=== PATIENT | female | born 1970 | race Caucasian/White ===

== ENCOUNTER 2019-10-06 02:08 | Outpatient (CLI) | payer OTHER, SELFPAY ==
--- NOTE | 2019-10-06 13:21 | DI.MAMMO_ITS ---
EXAM: MG MAMMO SCREENING CLINICAL HISTORY: SCREENING, Z12.39. TECHNIQUE: Bilateral full field digital CC and MLO mammographic images were obtained with 3D tomosyn thesis and utilizing computer aided detection (CAD). COMPARISON: Available for comparison. FINDINGS: Masses/Architectural Distortion: None seen. Microcalcifications: No suspicious pleomorphic-type are seen. Skin Thickening/Nipple Retraction: None. IMPRESSION: 1. No significant interval change with no specific features of malignancy noted. 2. Unless there is more urgent need, screening mammography is recommended, as per [employer] guidelines. ACR BI-RAD Category- 1 Negative Breast Density - Category C - Heterogeneously dense The mammogram demonstrates the patient's breast tissue is dense. Dense breast tissue is very common a nd is not abnormal but dense breast tissue can make it harder to find cancer on a mammogram. Also, de nse breast tissue may increase their breast cancer risk. This information about the result of the [facility] mogram report was provided to the patient to raise their awareness. Use this report when you speak wi th the patient about their risks for breast cancer, which includes their family history. At that time , you may recommend for more screening tests (Ultrasound or MRI) as they might be useful based on the ir risk. A negative radiographic report should not delay biopsy if a dominant or clinically suspicious mass is present. Up to ten percent of cancers are not identified on mammography. A negative report may reinforce clinical impression. Adenosis and dense breasts may obscure an underlying neoplasm. False positive reports average 6 to 10%. Patient will receive a letter notifying them of these results.
== END 2019-10-06 02:28 ==
PROVIDERS: PCP Family Medicine; Visit Provider Family Medicine
DX: Z12.31 Encounter for screening mammogram for malignant neoplasm of breast (principal)
CPT/HCPCS: 77063; 77067

== ENCOUNTER 2020-06-09 09:50 | Day surgery (SDC) | payer OTHER, SELFPAY ==
[2020-06-09 10:13] VITALS: BP 121/76; PULSE 57; RESP 16; TEMP 36.6; O2SAT 97
[2020-06-09] MEDS: Lactated Ringers 1,000 ML 80 ML IV (10:33)
--- NOTE | 2020-06-09 11:14 | W.PM.DSUDISC ---
Discharge Plan Disposition Patient Disposition: HOME Condition: Good Discharge Details Reason For Visit: colon scope Attending Provider: Juana Tapia Primary Care Provider: Vanessa Scanlon Home Meds and New Rx's Prescriptions: Continued Flovent HFA 110 mcg/actuation HFA aerosol inhaler 1 puff IH BID RF: 0 montelukast [Singulair] 10 mg tablet 10 mg PO DAILY RF: 0 acyclovir [Zovirax] 5 % cream 1 applic TP ONCE RF: 0 fluconazole [Diflucan] 150 mg tablet 150 mg PO DAILY RF: 0 valacyclovir [Valtrex] 500 MG tablet 500 mg PO PRN PRNRF: 0 albuterol sulfate [Ventolin HFA] 8 GM HFA aerosol inhaler 2 puff Inhalation PRN PRNRF: 0 Ibuprofen [Ibuprofen Ib] 200 MG tablet 600 mg PO PRN PRNRF: 0 Discontinued polyethylene glycol 3350 17 gram/dose powder 238 g PO ONCE Qty: 238 RF: 0 bisacodyl [Dulcolax (bisacodyl)] 5 mg tablet,delayed release (DR/EC) 5 mg PO ONCE Qty: 4 RF: 0 Discharge Instructions Additional Instructions: Findings:normal Follow up:repeat in 10 yrs time Please call if you develop: fevers >101.5 Nausea or Vomiting Abdominal pain that is not transient DAY SURGERY UNIT POST COLONOSCOPY INSTRUCTIONS 1. Because there will be medication in your system for the next 24 hours, you may feel a little sleepy. Your coordination will be affected. Therefore: a. Do not drive or operate dangerous equipment for 24 hours. b. Do not drink alcohol beverages for 24 hours (not even beer). c. Plan to go home and rest for the day. 2. Generally there are no restrictions on your activity after a day or so has gone by, but you may feel a bit fatigued for a few days. 3 After you arrive home you may have a light meal and return to a normal diet as you can tolerate it without feeling sick to your stomach. 4. After surgery, you may feel pain or discomfort. This should be only transient, but if it persists please contact your doctor. 5. If there are any questions regarding the findings of your procedure, please feel free to contact your doctor. 6. If you are unable to contact your doctor with a problem, contact the hospital at [phone]. 7. Continue all your regular medications unless directed otherwise. I understand the above instructions and have no questions. Signature of Patient or Responsible Adult Escort Date/Time Name of Responsible Adult Escort Signature of Nurse Date/Time Activity:: No lifting over 20 pounds or strenuous activity x24 hours. Diet:: Small light meals x24 hours Discharge Orders Discharge Orders: Discharge Order (Routine); Ordered 06/09/20 Ordered By: Juana Tapia DS: Diagnosis Discharge Diagnosis (1) Colon cancer screening: Status: Acute
[2020-06-09 11:38] VITALS: BP 110/67; PULSE 49; RESP 16; TEMP 36.4; O2SAT 100
--- NOTE | 2020-06-10 10:02 | W.COLOREPORT ---
Date of service: 06/09/20 Time of Service: 10:30 Colonoscopy Report Date of procedure: 06/09/20 Pre-op diagnosis general: CRC screen Post-op diagnosis procedure note: same Surgeon: Juana Tapia Anesthesia proc note operative: GETA Estimated blood loss (mL): 0 Pathology: none sent Disposition: same day Prep: Miralax/Dulcolax Retraction Time: 10 Procedure Description: After informed consent was obtained the patient was taken to the procedure room and placed in a left decubitous position. Monitors were applied and a time out was done. The patients name, date of , procedure, allergies to medications and metal in their body was reviewed. The patient was then sedated. Once sedated and comfortable a rectal exam was done. External exam was normal. Internal exam revealed a normal sphincter tone and no palpable masses. The scope was then introduced and retrofelexed. no internal hemorrhoids were identified. The scope was then advanced to the cecum w/out difficulty. The TI and appendiceal orifice were identified. The prep was good. The scope was then slowly retracted over 10 minutes back into the rectum. No polyps/avm's/diverticula. The scope was removed and the patient was woken up and taken back to Same day surgery in stable condition. The patient tolerated the procedure well and there were no immediate complications. Follow up: The patient should follow up in 10 years unless they develop changes in bowel habits or other new gastrointestinal complaints.
== END 2020-06-09 11:57 | disposition home or self-care (01) ==
PROVIDERS: PCP Family Medicine; Visit Provider Surgery
PROC: 0DJD8ZZ Inspection of Lower Intestinal Tract, Via Natural or Artificial Opening Endoscopic (ICD-10-PCS; CPT 45378; principal; 2020-06-09 10:15)
DX: Z12.11 Encounter for screening for malignant neoplasm of colon (principal)
CPT/HCPCS: 45378; J2001

== ENCOUNTER 2022-02-22 04:19 | Outpatient (CLI) | payer OTHER, SELFPAY ==
[2022-02-22 13:54] LABS: TSH (W/Ref FT4) 1.86 uIU/mL (0.36-3.74)
== END 2022-02-22 04:20 | disposition home or self-care (01) ==
LOC: LBO 04:20
PROVIDERS: PCP Family Medicine; Visit Provider Family Medicine
DX: R07.0 Pain in throat (principal)
CPT/HCPCS: 36415; 84443

== ENCOUNTER 2022-12-11 01:42 | Outpatient (CLI) | payer OTHER, SELFPAY ==
--- NOTE | 2022-12-11 | DI.MAMMO_ITS ---
Exam(s) MAMMO SCREENING EXAM: MAMMO SCREENING CLINICAL HISTORY: SCREENING, Z12.31 TECHNIQUE: Bilateral full field digital CC and MLO mammographic images were obtained with 3D tomosyn thesis and utilizing computer aided detection (CAD). COMPARISON: Available for comparison. FINDINGS: Masses/Architectural Distortion: There is a 1.1 cm ovoid lobulated density in the inferior left breas t on the MLO view. Microcalcifications: No suspicious pleomorphic-type are seen. Skin Thickening/Nipple Retraction: None. IMPRESSION: 1. Ovoid density in the inferior left breast on the MLO view. 2. Further evaluation with a spot compression views recommended. Limited left breast ultrasound may be indicated at that time. BI-RADS Category 0 - Assessment Incomplete: Need additional imaging evaluation Breast Density - Category C - Heterogeneously dense Breast density category C or D implies that the patient has dense breast tissue. Dense breast tissue is very common and is not abnormal but dense breast tissue can make it harder to find cancer on a ma mmogram. Also, dense breast tissue may increase their breast cancer risk. This information about the result of the mammogram report was provided to the patient to raise their awareness. Use this report when you speak with the patient about their risks for breast cancer, which includes their family hist ory. At that time, you may recommend for more screening tests (Ultrasound or MRI) as they might be us eful based on their risk. A negative radiographic report should not delay biopsy if a dominant or clinically suspicious mass is present. Up to ten percent of cancers are not identified on mammography. A negative report may reinforce clinical impression. Adenosis and dense breasts may obscure an underlying neoplasm. False positive reports average 6 to 10%. Patient will receive a letter notifying them of these results.
== END 2022-12-11 02:02 ==
LOC: DI 01:43
PROVIDERS: PCP Family Medicine; Visit Provider Family Medicine
DX: Z12.31 Encounter for screening mammogram for malignant neoplasm of breast (principal)
CPT/HCPCS: 77063; 77067

== ENCOUNTER 2022-12-18 04:19 | Outpatient (CLI) | payer OTHER, SELFPAY ==
--- NOTE | 2022-12-18 14:30 | DI.US_ITS ---
Exam(s) MG MAMMO SCREEN CALL BACK UNI US BREAST LT LIMITED EXAM: MAMMO SCREEN CALL BACK UNI -LEFT AND COMPLETE LEFT BREAST ULTRASOUND CLINICAL HISTORY: 1.1 CM OVOID DENSITY IN INFERIOR LT BREAST ON MLO VIEW. TECHNIQUE: Unilateral LEFT BREAST spot mammographic images obtained with 3D tomosynthesisand [employer] computer aided detection (CAD). . Complete LEFT breast Ultrasound was also performed, including all 4 quadrants, the retroareolar regio n, and the ipsilateral axilla. COMPARISON: Prior mammograms were reviewed. This additional imaging was performed due to findings described on the recent screening mammogram of 12/11/2022. FINDINGS: DIAGNOSTIC MAMMOGRAM: Additional mammographic views performed todayrender this area less concerning. COMPLETE LEFT BREAST ULTRASOUND: Ultrasound performed today reveals no evidence of solid or significant cystic all 4 quadrants of the left breast.. Scanning of the ipsilateral axilla reveals no significant adenopathy. IMPRESSION: 1. No radiographic evidence of malignancy in the left breast. 2. Negative complete left breast ultrasound Appropriate follow-up as discussed by myself with the patient today is to keep her on a yearly mammog july schedule, with earlier imaging if a self detected breast change is noted. The patient was informed of these findings and recommendations prior to leaving the department today. BI-RADS Category 2 - Benign Findings Breast Density - Category B - Scattered areas of fibroglandular density Breast density Category C or D implies that the patient has dense breast tissue. Dense breast tissue can make it harder to find cancer on a mammogram. Dense breast tissue is also associated with an incr eased risk of breast cancer. This information about the result of the mammogram report was provided to the patient to raise their awareness. Use this report when you speak with the patient about their risks for breast cancer, which includes their family history. At that time, you may recommend additional screening tests (Ultrasoun d or MRI) as these tests may add significant information. A negative radiographic report should not delay biopsy if a dominant or clinically suspicious mass is present. Up to ten percent of cancers are not identified on mammography. A negative report may reinforce clinical impression. Adenosis and dense breasts may obscure an underlying neoplasm. False positive reports average 6 to 10%. Patient will receive a letter notifying them of these results.
== END 2022-12-18 04:39 ==
LOC: DI 04:19
PROVIDERS: PCP Family Medicine; Visit Provider Family Medicine
DX: R92.8 Other abnormal and inconclusive findings on diagnostic imaging of breast (principal)
CPT/HCPCS: 76642; 77063; 77067

== ENCOUNTER 2023-09-10 20:34 | Emergency (ER) | payer OTHER, SELFPAY ==
[2023-09-10 20:43] VITALS: BP 132/89; PULSE 76; RESP 16; TEMP 36.5; O2SAT 98
--- OUTSIDE RECORDS SUMMARY | 2023-09-10 20:43 | XMS_ITS | Patient Health Record ---
Author Name Unknown Organization [facility] Address [address] [place] [id number] Care Team Providers Care Prototype Carpenter Name Role Phone Vanessa Scanlon Primary Care Provider [phone] ALLERGIES Allergen (clinical drug ingredient) Drug/Non Drug Allergy documented on EMR Reaction Allergy Type Onset Date Status Aspartame burning throat Drug Allergy Ac tive aspirin Aspirin due to asthma Drug Allergy Act ally sulfamethoxazole / trimethoprim Bactrim nausea Drug Allergy Active meperidine Demerol YEE, vomiting Drug Allergy Act ally midazolam Midazolam HCl YEE, vomiting Drug Allergy Active Nonoxynol-9 Unknown Drug Allergy Activ e carbamazepine TEGretol Nausea and Vomiting, brain fog Drug Allergy Active Environmental (uncoded) Unknown Allergy Active cefaclor Ceclor (uncoded) Unknown Allergy Act ally RESULTS Component Value Reference Range Notes MAMMOGRAM Reviewed date:01/03/2023 01:56:56 PM Interpretation:BIRADS 2 Performing Lab: Notes/Report: BIRADS 2 Results: BIRADS 2 MRI and MRA Head Reviewed date:03/08/2023 04:16:58 PM Interpretation: Performing Lab: Notes/Report: MAMMOGRAM Reviewed date:12/13/2022 03:44:20 PM Interpretation: Performing Lab: Notes/Report: Results: THINPREP PAP AND HPV mRNA E6 E7 with imaging Reviewed date:12/06/2022 08:56:42 AM Interpretation: Performing Lab:NL1, [facility], [address] [place] [address], [id number] Delmer Santoyo M.D. Notes/Report: Received Date: [id number] FASTING: UNKNOWN CLINICAL INFORMATION: None g iven LMP: NONE GIVEN PREV. PAP: NONE GIVEN PREV. BX: NONE GIVEN SOURCE: Cervix STATEMENT OF ADEQUACY: Satisfactory for evaluation. Endocervical/transformation zone component present. INTERPRETATION/RESULT: Negat ally for intraepithelial lesion or malignancy. COMMENT: This Pap test has been evaluated with computer assisted technology. CHICKEN TENDER: TONYA SANDOVAL(ASCP) CT screening location: [place] [address] COMMENT EXPLANATORY NOTE: The Pap is a screening test for cervical cancer. It is not a diagnostic test and is subject to false negative and false positive results. It is most reliable when a satisfactory sample, regularly obtained, is submitted with relevant clinical findings and history, and when the Pap result is evaluated along with historic and current clinical information. HPV mRNA E6/E7 Not Detected Not Detected Methodology: Film Examiner-Mediated Amplification This assay detects E6/E7 viral messenger RNA (mRNA) from 14 high-risk HPV types (16,18,31,33,35,39,45,51,52,5 6,58,59,66,68). Cervical sources are required for HPV testing. If a vaginal source from a patient who has had a total hysterectomy with removal of cervix was submitted, please contact the testing laboratory for alternative testing options. For additional information, please refer to http://education.Shelfbucks.Estoreify/faq/ZYD398x3 (This link if provided for information/ educational purposes only.) REASON FOR REFERRAL Reason NO APPT 02/12/23 LP. FAXED TO 02.07.2023 [place] eval and treat Please contact our office within 7 days to notify [facility] of scheduled appointment Diagnosis 1 Bunion, left foot (M 21.612) Referral Organization [facility] Referring Provider First Name Vanessa Referring Provider Last Name Ghislaine Referring Provider Speciality Family [facility] Referred Organization [facility] Referred Provider SONU KEY Referred Address [address], [id number], Referred Provider Specialty Podiatry General Notes Jaclyn Stokes 02/07 10:47:10 AM >FAXED TO [facility].Haroon Lindsey 02/12/2023 03:41:21 PM >PER [place], NO APPT YET. Referral Priority Routine Reason FAXED TO [facility] 09.04.19 24 [place] Please evaluate and treat Please contact our office within 7 days to notify [facility] of scheduled appointment Diagnosis 1 Trigeminal neuralgia (G50.0) Referral Organization [facility] Mikey Quiñonez Referring Provider First Name [place] Referring Provider Last Name Ghislaine [facility] joan Referred Provider Anali Duran Referred Provider Specialty Neurology General Notes Jaclyn Stokes 09/04 09:49:47 AM >Faxed to [facility]. Referral Priority Routine Reason FAXED TO [facility] NEURO 0 09/03/23 LP. eval and treat Please contact our office within 7 days to notify [facility] of scheduled appointment Diagnosis 1 Trigeminal neuralgia (G50.0) Referral Organization [facility] Mcintosh Referring Provider First Name [place] Referring Provider Last Name Ghislaine Referring Provider [facility] joan Referred Provider Anali Duran Referred Provider Specialty Neurology General Notes Diana Salcido RN 09/03/2023 11:29:43 AM >Please include Ov note from 08/31/2023., Svitlana Patiño 09/03/2023 01:39:02 PM >FAXED TO [facility] NEURO Referral Priority Routine MEDICATIONS Medication SIG (Take, Route, Frequency, Duration) Notes Start Date End Date Status Vitamin B Complex - as directed Orally Active Singulair 10 MG 1 tablet in the evening Orally Once a day as needed for 30 days taking daily Active lamoTRIgine 25 MG 1 tablet twice daily for 3 day, then increase to 2 tablets twice a day Orally as directed for 14 days 03/08/2023 Active Ventolin HFA 108 (90 Base) MCG/ACT 2 puffs Orally every 4-6 hours as needed for 30 days 06/06/2015 Active Zovirax 5 % 1 application to affected area Externally Five times a day for 30 days 03/16/2019 Active Flovent HFA 110 MCG/ACT 2 puffs Inhalati on Twice a day as needed for 30 days Active valACYclovir HCl 500 MG 1 tablet Orally twice a day with outbreak for 30 days 03/15/2015 Active IMMUNIZATIONS Vaccine Route Administration Date Status Comme nts COVID-19 Moderna 22739 Unknown 11/23/2020 Administered COVID-19 Moderna 28834 Unknown 12/21/2020 Administered COVID-19 Moderna 27444 IM Intramuscular 07/04/2021 Adminis tered COVID-19 Pfizer NATALIE Age 19 to 64 STATE Supplied IM Intramuscular 06/17/2023 Administered INFLUENZA 18 YRS TO 64 YRS OLD-STATE SUPPLIED Unknown 06/22/2010 Administered INFLUENZA 18 YRS TO 64 YRS OLD-STATE SUPPLIED IM Intramuscular 06/17/2012 Administered INFLUENZA 18 YRS TO 64 YRS OLD-STATE SUPPLIED Unknown 04/24/2014 Administered INFLUENZA 18 YRS TO 64 YRS OLD-STATE SUPPLIED Unknown 05/13/2015 Administered INFLUENZA 18 YRS TO 64 YRS OLD-STATE SUPPLIED Unknown 05/04/2016 Administered INFLUENZA 18 YRS TO 64 YRS OLD-STATE SUPPLIED IM Intramuscular 06/11/2018 Administered INFLUENZA 18 YRS TO 64 YRS OLD-STATE SUPPLIED IM Intramuscular 07/27/2019 Administered INFLUENZA 18 YRS TO 64 YRS OLD-STATE SUPPLIED IM Intramuscular 05/18/2020 Administered INFLUENZA 18 YRS TO 64 YRS OLD-STATE SUPPLIED IM Intramuscular 05/24/2021 Administered INFLUENZA 18 YRS TO 64 YRS OLD-STATE SUPPLIED IM Intramuscular 05/31/2022 Administered INFLUENZA 18 YRS TO 64 YRS OLD-STATE SUPPLIED IM Intramuscular 06/17/2023 Administered Influenza 3 Yrs and up State Supply 65303 Unknown 07/02/2011 Administered Influenza 3 Yrs and [facility] Supply 10255 IM Intramuscular 07/06/2013 Administered TDaP Adult [facility] 84772 IM Intramuscular 09/05/2012 Administ ered TDaP Adult [facility] 91584 IM Intramuscular 11/22/2022 Administ ered SOCIAL HISTORY Tobacco Use: Social History Observation Description Date Details (start date - stop date) Never Smoker NA - NA Sex Assigned At : Social History Observation Description Sex Assigned At Female OTHER TOBACCO USE: Question Answer Notes Are you an other tobacco user? No SMOKING STATUS: Question Answer Notes Are you a: Nonsmoker PRAPARE Question Answer Notes Date Completed/Updated: 10/17/2020 What is your current housing situation? I have h ousing Are you worried about losing your housing? No What is the highest level of school that you have finished? 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 Check all that apply I do not have problems meeting my needs Has lack of transportation k ept you from medical appointments, meetings, work or from getting things needed for daily living? No How often do you see or talk to people that you care about and feel close to? (For example: talking to friends on the phone, visiting friends or family, going to episcopalian or club meetings) 3 to 5 times a week How stressed are you? Stress is when someone feels tense, nervous, anxious, or can't sleep at night because their mind is troubled A little bit In the past year have you sp ent more than 2 nights in a row in a intermediate, fdc, halfway center, or juvenile correctional facility? No Are you a refugee? No What country are you from? [place] Do you feel physically and e motionally safe where you currently live? No In the past year, have you b een afraid of your partner or ex-partner? 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) Active confirmed 043711470 Problem Neutropenia, unspecified type (D70.9) Active confirmed 631826146 Problem Adjustment disorder, unspecified type (F43.20) Active confirmed 39345045 Problem Piriformis syndrome, unspecified laterality (G57.00) Active confirmed 010105813 Problem Hypercholesteremia (E78.00) Active confirmed 95271972 Problem Right-sided low back pain with right-sided sciatica, unspecified chronicity (M54.41) Active confirmed 231613910 Problem Bunion, left foot (M21.612) Active confirmed 049874325 VITAL SIGNS Heart Rate 66 BPM 08/31/2023 Temperature 98.1 degrees Fahrenheit 08/31/2023 Respiratory Rate 16 /min 03/08/2023 Oximetry 97 % 08/31/2023 Blood pressure diastolic 62 mmHg 08/31/2023 Height 65 in 08/31/2023 Blood pressure systolic 98 mmHg 08/31/2023 Weight 147.6 lbs 11/22/2022 BMI 24.56 kg/m2 11/22/2022 Encounters Encounter Location Date Provider Diagnosis [address] [id number] 10/08/2022 Vanessa Scanlon RAD (reactive airway disease) J45.[address] [id number] 11/22/2022 [place] Ghislaine PRAPARE NEGATIVE PRA N [address], [place] [id number] 01/03/2023 [place] Ghislaine [facility] [address] [facility], [place] [address] 02/05/2023 [place] Ghislaine Bunion, left foot M21.[address], [place] [id number] 02/28/2023 [place] Ghislaine [address], [place] [id number] 03/05/2023 [place] Ghislaine [facility] [address] [facility], [place] [address] 08/29/2023 [place] Ghislaine Trigeminal neural xochilt G50.[address], [place] [id number] 08/30/2023 [place] Ghislaine [address], [place] [id number] 09/06/2023 [place] Ghislaine Trigeminal neuralgia G50.[address], [place] [id number] 11/22/2022 [place] Ghislaine Annual physical exam Z00.00 ; Dietary counseling Z71.3 ; Screening mammogram for breast cancer Z12.31 ; RAD (reactive airway disease) J45.909 and Pap smear for cervical cancer screening Z12.[address], [place] [id number] 06/17/2023 [place] Scanlon Encounter for immunization Z23 [address] [id number] 08/31/2023 [place] Ghislaine Trigeminal neural xochilt G50.0 and RAD (reactive airway disease) J45.[address], [place] [id number] 03/08/2023 [place] Ghislaine Trigeminal neuralgia G50.[address] [id number] 02/25/2023 [place] Ghislaine Trigeminal neuralgia G50.0 ASSESSMENTS Encounter Date Diagnosis Assessment Notes Treatment Notes Treatment Clinical Notes 10/08/2022 RAD (reactive airway disease) (ICD-10 - J45.909) 11/22/2022 PRAPARE NEGATIVE (ICD9-CM - PRAN) 11/22/2022 Annual physical exam (ICD-10 - Z00.00) 02/25/2023 Trigeminal neuralgia (ICD-10 - G50.0) Trigeminal Neuralgia: Care Instructions material was printed 03/08/2023 Trigeminal neuralgia (ICD-10 - G50.0) 06/17/2023 Encounter for immunization (ICD-10 - Z23) Patient presents for flu shot. Screening questions reviewed with patient. There was no contraindication to patient receiving the flu shot today. Consent received prior to injection. Vaccine Information Sheet offered to patient. 08/29/2023 Trigeminal neuralgia (ICD-10 - G50.0) 08/31/2023 Trigeminal neuralgia (ICD-10 - G50.0) 02/05/2023 Bunion, left foot (ICD-10 - M21.612) 09/06/2023 Trigeminal neuralgia (ICD-10 - G50.0) 08/31/2023 RAD (reactive airway disease) (ICD-10 - J45.909) 11/22/2022 Dietary counseling (ICD-10 - Z71.3) 11/22/2022 Screening mammogram for breast cancer (ICD-10 - Z12.31) 11/22/2022 RAD (reactive airway disease) (ICD-10 - J45.909) 11/22/2022 Pap smear for cervical cancer screening (ICD-10 - Z12.4) 11/22/[address] Scanlon by Mayi Pike medical office clerk, on 11/22/2022. I, Dr. Scanlon, have personally reviewed and agreed with the information entered by the medical office clerk. 02/25/[address] Scanlon by Mayi Pike medical office clerk, on 02/25/2023. I, Dr. Scanlon, have personally reviewed and agreed with the information entered by the medical office clerk. 03/08/[address] Scanlon by Mayi Pike medical office clerk, on 03/08/2023. IDr. Scanlon, have personally reviewed and agreed with the information entered by the medical office clerk. PLAN OF TREATMENT No Information Insurance Providers Payer Name Payer Address Payer Phone Subscriber Number Group Number Insured Name Patient Relationship to Insured Coverage Start Date Coverage End Date [facility] [address] [place], [place] [phone] [id number] Trina Gutierrez Self - patient is the insured MEDICAL (GENERAL) HISTORY Medical History History ICD Code RAD HSV hx: abnormal paps (ASCUS, LS IL, HPV). 11/02/2013: normal colpo. 01/31 nl Pap, HPV neg. isolated, elevated RF 2010 on hypercholesterolemia, no need for treatm ent MRI of pelvis 08/2021 shows extensive findings with bilateral labral tears, bilateral iliopsoas bursitis, left hip OA, insertional gluteal tendonopathy bilaterally, partial tear of left hamstring, high grade partial tear of right hamstring Trigeminal neuralgia. 2 disc reet episodes 02/2023 and 08/2023. normal MRI. adverse response to tegretol Surgical History Surgery Date(Month/Year) C section 1998 c section 2000 c section 2007 Hospitalization History Reason Date(Month/Year)
--- NOTE | 2023-09-10 21:06 | ED.GENADUL_ITS ---
HPI General Mode of arrival: ambulatory . Date/Time Provider Initiated Documentation: 09/10/23 20:36 . Limitations to Documentation: no limitations . Information obtained by: patient . HPI Narrative: 53-year-old female with history of trigeminal neuralgia, here with new onset of painful lump posterior right occiput. Patient noticed lump earlier today on palpation. Lump is tender. She notes some localized discomfort around the area. She also states her trigeminal pain has been persistent with pain in her right lower jaw and some paresthesia in her right lower lip. She had a stabbing sensation in her ear earlier. No pain now in the ear. No headache. No fever. Related Data Home Medications Medication Instructions Recorded Confirmed albuterol sulfate 90 mcg/actuation 2 puff inhalation PRN PRN 06/22/13 09/10/23 aerosol inhaler (Ventolin HFA) valacyclovir 500 mg tablet 500 mg PO PRN PRN 06/22/13 09/10/23 (Valtrex) Ibuprofen [Ibuprofen Ib] 600 mg PO PRN PRN 09/06/17 09/10/23 acyclovir 5 % topical cream 1 applic topical ONCE 09/17/19 09/10/23 (Zovirax) fluticasone propionate 110 1 puff inhalation BID 09/17/19 09/10/23 mcg/actuation HFA aerosol inhaler (Flovent HFA) montelukast 10 mg tablet 10 mg PO DAILY 09/17/19 09/10/23 (Singulair) lamotrigine 25 mg tablet 25 mg PO BID 09/10/23 09/10/23 Allergies Allergy/AdvReac Type Severity Reaction Status Date / Time cefaclor [From Ceclor] Allergy Verified 09/10/23 20:39 nonoxynol 9 Allergy Verified 09/10/23 20:39 shellfish derived Allergy tested Verified 09/10/23 20:39 postive on allergy testing aspirin AdvReac Intermediate Contraindicated Unverified 09/10/23 20:39 due to asthma adhesive AdvReac Mild local Unverified 09/10/23 20:39 irritation latex AdvReac Unverified 09/10/23 20:39 meperidine [From Demerol] AdvReac YEE, Verified 09/10/23 20:39 vomiting midazolam AdvReac YEE, Verified 09/10/23 20:39 vomiting sulfamethoxazole AdvReac nausea Verified 09/10/23 20:39 [From Bactrim] trimethoprim [From Bactrim] AdvReac nausea Verified 09/10/23 20:39 aspertame AdvReac Intermediate Burning Uncoded 09/10/23 20:39 throat General Stated Complaint: Nk/Back Pain KYREE: 3 Review of Systems ENT Ears, Nose, Mouth, and Throat: Reports as per HPI Exam Const General: cooperative and no acute distress HENMT Head: normocephalic and atraumatic Ears: TM normal on the right, EAC's normal (rt) and no periauricular adenopathy General nose exam: external nose normal Mouth: moist mucous membranes Teeth and gingiva: dentition normal Other: Right occipital area: Single less than 1 cm palpable nonmobile subcutaneous nodule that is tender to palpation with no overlying inflammatory changes. No skin lesions in the area. Eyes Conjunctivae: normal conjunctivae Sclera: normal sclerae Pupils: PERRL EOM: EOM intact bilaterally Neck Neck: trachea midline Lymphatic: no lymphadenopathy noted Skin General skin exam: no rashes or lesions noted Neuro General: patient alert and patient awake Cognition: normal cognition Other: No facial weakness Course Vital Signs Vital signs: Vital Signs Temperature 36.5 C 09/10/23 20:43 Pulse 76 09/10/23 20:43 Respiratory Rate 16 09/10/23 20:43 Blood Pressure 132/89 09/10/23 20:43 Pulse Oximetry 98 09/10/23 20:43 Temperature 36.5 C 09/10/23 20:43 Temperature Source Temporal Artery Scan 09/10/23 20:43 Pulse 76 09/10/23 20:43 Respiratory Rate 16 09/10/23 20:43 Respiratory Effort Normal, Non-Labored 09/10/23 20:47 Blood Pressure 132/89 09/10/23 20:43 Blood Pressure Position Sitting 09/10/23 20:43 Pulse Oximetry 98 09/10/23 20:43 Oxygen Delivery Method Room Air 09/10/23 20:43 Oxygen Flow Rate 0 09/10/23 20:43 Pain Level 3 09/10/23 20:43 Medical Decision Making 53-year-old female here with painful palpable subcutaneous nodule right occiput. Exam consistent with tender lymph node. No signs of regional infection. Patient also with trigeminal neuralgia that is been plaguing her over the past few weeks. Patient has been seen by neurology in the past for this and had MRI a few months ago that was nondiagnostic. Plan to initiate treatment with anti-inflammatories ibuprofen and acetaminophen. Plan for outpatient follow-up with her neurologist. Usual and customary discharge instructions were reviewed. Patient was instructed return immediately for any worsening or new concerning symptoms. Patient verbalized understanding of discharge instructions. Quality:SDOH Health Related Social Needs: No Data to Display PFSH All Active Problems Trigeminal neuralgia of right side of face (Acute) Lymphadenopathy (Acute) Colon cancer screening (Acute) Medical History GERD (gastroesophageal reflux disease) Asthma Surgical History Hx of tubal ligation History of esophagogastroduodenoscopy (EGD) History of section Social History Smoking/Tobacco Use Status: Never Smoking risk assessment performed?: Yes Alcohol Intake: current Alcohol Intake frequency: a few times a week Alcohol type: wine Drug use: Never Substance use type: does not use Housing: house Do you feel safe at home: Yes Do you feel safe in your relationship?: Yes Discharge Plan Disposition Patient Disposition: Home Condition: Stable Discharge Details Clinical Impression: Lymphadenopathy, Trigeminal neuralgia of right side of face Primary Care Provider: Vanessa Scanlon ED Provider: Rashaun Omalley Home Meds and New Rx's Prescriptions: Continued fluticasone propionate [Flovent HFA] 110 mcg/actuation HFA aerosol inhaler 1 puff IH BID montelukast [Singulair] 10 mg tablet 10 mg PO DAILY acyclovir [Zovirax] 5 % cream 1 applic TP ONCE valacyclovir [Valtrex] 500 MG tablet 500 mg PO PRN PRN albuterol sulfate [Ventolin HFA] 8 GM HFA aerosol inhaler 2 puff Inhalation PRN PRN Ibuprofen [Ibuprofen Ib] 200 MG tablet 600 mg PO PRN PRN lamotrigine 25 mg tablet 25 mg PO BID Patient Comments: TAKE ONE TABLET BY MOUTH TWICE A DAY FOR 3 DAYS; THEN INCRASE TO 2 TWO TIMES A DAY Discharge Instructions Instructions: Trigeminal Neuralgia (ED), Lymphadenopathy (ED) Additional Instructions: Please take acetaminophen (tylenol) - 650mg every 6 hours by mouth as needed for pain. Please take ibuprofen over the counter. Take 600mg by mouth every 6 hours as needed for pain. Please follow-up with neurology regarding her trigeminal neuralgia. Please contact your primary care physician to arrange follow-up. Return to the ER immediately for any worsening or new concerning symptoms. Referrals: Vanessa Scanlon [Primary Care Provider] -
[2023-09-10] MEDS: Acetaminophen 325 MG TAB 650 MG PO (21:19)
== END 2023-09-10 21:21 | disposition home or self-care (01) ==
PROVIDERS: Emergency Provider Student in an Organized Health Care Education/Training Program; PCP Family Medicine
DX: R59.1 Generalized enlarged lymph nodes (principal); G50.0 Trigeminal neuralgia
CPT/HCPCS: 99283

== ENCOUNTER 2023-11-09 05:29 | Emergency (ER) | payer OTHER, SELFPAY ==
[2023-11-09] VITALS (70 sets, daily range): BP systolic 90–140; BP diastolic 54–85; PULSE 44–68; RESP 8–30; TEMP 36.4–36.8; O2SAT 96–97
--- NOTE | 2023-11-09 05:30 | DI.RAD_ITS ---
Exam(s) XR PORTABLE CHEST AP EXAM: XR PORTABLE CHEST AP CLINICAL HISTORY: left chest pain TECHNIQUE: 2D digital imaging was performed. COMPARISON: No exams were available for comparison FINDINGS: LUNGS: Clear. No pleural abnormality seen. HEART: Normal size. AORTA: Normal diameter. BONES: Unremarkable for age. Soft tissues: Unremarkable. IMPRESSION: No acute findings. DATA REPOSITORY: RADIATION DOSE DELIVERED:
--- NOTE | 2023-11-09 05:30 | RT.EKG_ITS ---
APPROVED REPORT Exam: Resting ECG Reason for Exam: chest pain Patient Location: E HR:58 bpm ECG Measurements Heart Rate 58 AXIS [place] 181 P -12 QRSd 89 QRS 19 QT 408 T 23 QTc 401 Conclusion Sinus bradycardia...rate< 60 Physician: no stemi
--- NOTE | 2023-11-09 05:44 | ED.GENADUL_ITS ---
Discharge Plan Discharge Details Chief Complaint: Chest Pain Clinical Impression: Chest discomfort, Neutropenia Primary Care Provider: Vanessa Scanlon ED Provider: Erich Woodard Home Meds and New Rx's Prescriptions: No Action fluticasone propionate [Flovent HFA] 110 mcg/actuation HFA aerosol inhaler 1 puff IH BID montelukast [Singulair] 10 mg tablet 10 mg PO DAILY acyclovir [Zovirax] 5 % cream 1 applic TP ONCE valacyclovir [Valtrex] 500 MG tablet 500 mg PO PRN PRN albuterol sulfate [Ventolin HFA] 8 GM HFA aerosol inhaler 2 puff Inhalation PRN PRN Ibuprofen [Ibuprofen Ib] 200 MG tablet 600 mg PO PRN PRN lamotrigine 25 mg tablet 25 mg PO BID Patient Comments: TAKE ONE TABLET BY MOUTH TWICE A DAY FOR 3 DAYS; THEN INCRASE TO 2 TWO TIMES A DAY HPI General Date/Time Provider Initiated Documentation: 11/09/23 05:30 . HPI Narrative: This is a pleasant 53-year-old female with a past medical history of asthma, high cholesterol, currently on lamotrigine for potential trigeminal neuralgia, currently with a right infected upper tooth who is scheduled for dental procedure, presents today for evaluation of left-sided chest pain. Patient states that both yesterday and today at around 4:15 AM to 5 AM she awoke with left-sided chest discomfort which she describes as a compressing sensation that goes from her left chest to the left shoulder and then down her left arm. It lasts about 30 minutes and then resolves on its own. Currently her pain has resolved. However with the second occurrence of pain today she came to the ER for further assessment. She denies any recent long trips, but does admit to relatively recent uterine biopsy which was unremarkable.. Today chest pain started at 4:15 AM. She denies any cough, shortness of breath, fever or chills. She does admit to some chills this morning where she broke out into a sweat. N o other complaints at this time. She denies any family history of cardiac disease or personal history of cardiac disease. No history of blood clots. Related Data Home Medications Medication Instructions Recorded Confirmed albuterol sulfate 90 mcg/actuation 2 puff inhalation PRN PRN 06/22/13 11/09/23 aerosol inhaler (Ventolin HFA) valacyclovir 500 mg tablet 500 mg PO PRN PRN 06/22/13 11/09/23 (Valtrex) Ibuprofen [Ibuprofen Ib] 600 mg PO PRN PRN 09/06/17 11/09/23 acyclovir 5 % topical cream 1 applic topical ONCE 09/17/19 11/09/23 (Zovirax) fluticasone propionate 110 1 puff inhalation BID 09/17/19 11/09/23 mcg/actuation HFA aerosol inhaler (Flovent HFA) montelukast 10 mg tablet 10 mg PO DAILY 09/17/19 11/09/23 (Singulair) lamotrigine 25 mg tablet 25 mg PO BID 09/10/23 11/09/23 Allergies Allergy/AdvReac Type Severity Reaction Status Date / Time cefaclor [From Ceclor] Allergy Nausea Verified 11/09/23 05:53 nonoxynol 9 Allergy Headache Verified 11/09/23 05:53 shellfish derived Allergy tested Verified 11/09/23 05:53 postive on allergy testing aspirin AdvReac Intermediate Contraindicated Unverified 11/09/23 05:53 due to asthma adhesive AdvReac Mild local Unverified 11/09/23 05:53 irritation latex AdvReac Skin Rash Unverified 11/09/23 05:53 meperidine [From Demerol] AdvReac YEE, Verified 11/09/23 05:53 vomiting midazolam AdvReac YEE, Verified 11/09/23 05:53 vomiting sulfamethoxazole AdvReac nausea Verified 11/09/23 05:53 [From Bactrim] trimethoprim [From Bactrim] AdvReac nausea Verified 11/09/23 05:53 aspertame AdvReac Intermediate Burning Uncoded 11/09/23 05:53 throat General Stated Complaint: Chest Pain KYREE: 2 Review of Systems All systems reviewed & are unremarkable except as noted in HPI and below Exam Narrative Exam Narrative: 1.Const: Well-nourished, Well-developed, appearing stated age 2.Eyes: PERRL, no conjunctival injection, and symmetrical lids. 3.ENT: Atraumatic external nose and ears. Moist MM. Neck: Symmetric, trachea mid line, No thyromegaly. 4.CVS: +S1/S2, No murmurs or gallops. Peripheral pulses 2+ and equal in all extremities. Brisk capillary refill in all extremities. 5.RESP: Unlabored respiratory effort. Clear to auscultation bilaterally. No wheezes rales or rhonchi 6.GI: Soft, Nontender/Nondistended, No hepatosplenomegaly. No guarding or rebound. 7.MSK: Normocephalic/Atraumatic, Extremities w/o deformity or ttp No cyanosis or clubbing, Normal movement of all extremities 8.Skin: Warm, Dry. No rashes or lesions. 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 Sensation grossly intact, no focal neurologi c deficits. 10.Psych: (AAO) x3. Appropriate mood and affect Course Vital Signs Vital signs: Vital Signs Temperature 36.4 C 11/09/23 05:32 Pulse 68 11/09/23 05:32 Respiratory Rate 16 11/09/23 05:32 Blood Pressure 140/81 11/09/23 05:32 Pulse Oximetry 97 11/09/23 05:32 Temperature 36.4 C 11/09/23 05:32 Temperature Source Oral 11/09/23 05:32 Pulse 68 11/09/23 05:32 Respiratory Rate 19 11/09/23 05:41 Respiratory Effort Normal, Non-Labored 11/09/23 05:41 Respiratory Depth Normal 11/09/23 05:41 Respiratory Pattern Normal 11/09/23 05:41 Blood Pressure 140/81 11/09/23 05:32 Blood Pressure Position Sitting 11/09/23 05:32 Pulse Oximetry 97 11/09/23 05:32 Oxygen Delivery Method Room Air 11/09/23 05:32 Oxygen Flow Rate 0 11/09/23 05:32 Pain Level 1 11/09/23 05:41 Medical Decision Making This is a pleasant 53-year-old female with a past medical history of asthma, high cholesterol, currently on lamotrigine for potential trigeminal neuralgia, currently with a right infected upper tooth who is scheduled for dental procedure, presents today for evaluation of left-sided chest pain. Patient states that both yesterday and today at around 4:15 AM to 5 AM she awoke with left-sided chest discomfort which she describes as a compressing sensation that goes from her left chest to the left shoulder and then down her left arm. It lasts about 30 minutes and then resolves on its own. Currently her pain has resolved. However with the second occurrence of pain today she came to the ER for further assessment. She denies any recent long trips, but does admit to relatively recent uterine biopsy which was unremarkable.. Today chest pain started at 4:15 AM. She denies any cough, shortness of breath, fever or chills. She does admit to some chills this morning where she broke out into a sweat. No other complaints at this time. She denies any family history of cardiac disease or personal history of cardiac disease. No history of blood clots. Exam demonstrates well-appearing female, no abnormalities, vital signs stable. No evidence of shingles on chest or skin. EKG shows no evidence of STEMI. Differential includes Prinzmetal's angina, angina, PE, or esophageal spasm. Symptoms appear inconsistent with dissection. Will evaluate for concerning etiologies, give aspirin, monitor closely and reassess. 7:01 AM Patient's laboratory workup is returned, no white count bandemia or left shift. WBC count is slightly low at 3.37 D-dimer normal, electrolytes normal, troponin normal. Patient remains chest pain-free. She feels well. Bedside ultrasound shows no significant abnormalities on POCUS. D-dimer negative suggesting no evidence of PE. Pending formal chest x-ray result, however upon my review no evidence of significant abnormality. Patient is low risk on the heart score, we will get repeat troponin, and if this is normal I feel patient is stable for discharge. Suspect chief etiology could be GERD, esophageal spasm, or Prinzmetal's angina. ACS seems notably less likely. Patient will be signed out for follow-up on repeat Trope. On an aside, with the patient's white blood cell count being slightly low, we will recommend close follow-up with primary care provider for repeat labs. Patient is on the lamotrigine, and this can sometimes cause immunomodulation. Will recommend holding the lamotrigine for the time being. Quality:SDOH Health Related Social Needs: No Data to Display PFSH All Active Problems (Updated 11/09/23 @ 07:04 by Erich Woodard DO) Neutropenia (Acute) Chest discomfort (Acute) Trigeminal neuralgia of right side of face (Acute) Colon cancer screening (Acute) Medical History GERD (gastroesophageal reflux disease) Asthma Surgical History Hx of tubal ligation History of esophagogastroduodenoscopy (EGD) History of section Social History Smoking/Tobacco Use Status: Never Smoking risk assessment performed?: Yes Alcohol Intake: current Alcohol Intake frequency: a few times a week Alcohol type: wine Drug use: Never Substance use type: does not use Housing: house Do you feel safe at home: Yes Do you feel safe in your relationship?: Yes PAWSS Have you Been Recently Intoxicated or Drunk Within the Last 30 days?: No Have you Ever Experienced Previous Episodes of Alcohol Withdrawal?: No Have you ever Experienced Withdrawal Seizures?: No Have you ever Experienced Delirium Tremens(DT)s?: No Have you ever undergone Alcohol Rehabilitation Treatment (i.e, inpt ot outpatient treatment programs)?: No Have you ever Experienced Blackouts?: No Have you ever Combined Alcohol with other Downers within the last 90 days?: No Have you ever Combined Alcohol with any other Substance of Abuse during the last 90 days?: No Positive Blood Alcohol level on Presentation? [PCS.BAL]: No Evidence of Increased Autonomic Activity (i.e. HR>120, tremor, sweating, agitation, nausea)?: No Result: 0 POCUS Exam (ED) Limited Cardiac Exam DATE OF EXAM: 11/09/23 TIME OF EXAM: 07:02 PROVIDER THAT PERFORMED THE STUDY: Erich Woodard IS THIS A REPEAT EXAM DURING THIS ENCOUNTER: no REASON FOR EXAM: Chest pain VISUALIZED STRUCTURES: Left atrium, Left ventricle, Right ventricle, Aortic valve and Interventricular septum VIEW OBTAINED: Parasternal long-axis and Parasternal short-axis PERTINENT FINDINGS/IMPRESSION: No apparent abnormalities Exam complete
[2023-11-09 05:55] LABS: Absolute Basophil Count 0.03 10^3/uL (0.0-0.2); Absolute Eosinophil Count 0.28 10^3/uL (0.0-0.7); Absolute Lymphocyte Count 1.52 10^3/uL (1.2-3.4); Absolute Monocyte Count 0.54 10^3/uL (0.1-0.8); Basophils % 0.9; Eosinophils % 8.3; HCT 39.7 % (36.0-46.0); HGB 13.3 g/dL (11.2-15.7); Lymphocytes % 45.1; MCH 30.7 pg (27.0-33.0); MCHC 33.5 % (32.0-36.0); MCV 92 fL (80-95); Neutrophils % 29.7; Platelet Count 283 10^3/uL (130-400); RBC 4.33 10^6/uL (3.93-5.22); RDW 12.1 % (11.7-14.6); RDW-SD 40.9 fL; WBC 3.37 10^3/uL (4.4-10.8)
[2023-11-09] MEDS: Aspirin 81 MG CHEW 324 MG CH (05:56)
[2023-11-09 06:07] LABS: ALT 27 U/L (14-59); AST 29 U/L (15-37); Alkaline Phosphatase 135 U/L (46-116); Anion Gap 6.7 mmol/L (3-11); BUN 11 mg/dL (7-18); Bilirubin, Total 0.2 mg/dL (0.2-1.0); CO2 27.3 mmol/L (21.0-32.0); CREATININE 0.8 mg/dL (0.55-1.02); Calcium 8.7 mg/dL (8.5-10.1); Chloride 105 mmol/L (98-107); Glucose 100 mg/dL (74-106); Potassium 4.2 mmol/L (3.5-5.1); Sodium 139 mmol/L (136-145); Total Protein 7.6 g/dL (6.4-8.2); Troponin I < 50 ng/L (< or =60)
[2023-11-09 06:29] LABS: D-Dimer 327 ng/mlFEU (<500)
--- NOTE | 2023-11-09 07:18 | DI.VRAD_ITS ---
PROCEDURE INFORMATION: Exam: XR Chest Exam date and time: 11/09/2023 6:02 AM Age: 53 years old Clinical indication: Pain; Left-sided; Additional info: Left chest pain TECHNIQUE: Imaging protocol: Radiologic exam of the chest. Views: 1 view. COMPARISON: No relevant prior studies available. FINDINGS: Lungs: No focal consolidation seen. Pleural spaces: No large pleural effusion seen. Heart/Mediastinum: Cardiac silhouette mildly prominent but is magnified by AP technique. Bones/joints: Grossly unremarkable. IMPRESSION: No acute findings to explain reported symptoms. Dictated and Authenticated by: Stephanie Allen MD. Ordering:ALEXI Jung MD
[2023-11-09] MEDS: Normal Saline Flush 10 ML SYR IVP (08:30)
--- NOTE | 2023-11-09 08:38 | ED.PROG_ITS ---
Date of service: 11/09/23 Time of Service: 09:21 Medical Decision Making Patient accepted in signout. Presented with chest pain that resolved prior to arrival in the emergency department. Low risk for ACS. Serial troponin and remainder of workup is unremarkable. Plan for discharge home. Recommend follow-up with PCP for outpatient stress testing. Quality:[facility] Health Related Social Needs: No Data to Display Sign Out Sign Out Data: Sign Out Comment: Chest pain, low risk heart score. Initial Trope D-dimer and EKG are benign. Pending repeat Trope. Patient does have mild neutropenia, recommend halting lamotrigine with close outpatient follow-up. Last updated by Erich Woodard DO at 11/09/23 07:05 Discharge Plan Disposition Patient Disposition: Home Condition: Stable Discharge Details Clinical Impression: Chest discomfort, Neutropenia Primary Care Provider: Vanessa Scanlon ED Provider: Jodi Wilkes Home Meds and New Rx's Prescriptions: No Action fluticasone propionate [Flovent HFA] 110 mcg/actuation HFA aerosol inhaler 1 puff IH BID montelukast [Singulair] 10 mg tablet 10 mg PO DAILY acyclovir [Zovirax] 5 % cream 1 applic TP ONCE valacyclovir [Valtrex] 500 MG tablet 500 mg PO PRN PRN albuterol sulfate [Ventolin HFA] 8 GM HFA aerosol inhaler 2 puff Inhalation PRN PRN Ibuprofen [Ibuprofen Ib] 200 MG tablet 600 mg PO PRN PRN lamotrigine 25 mg tablet 25 mg PO BID Patient Comments: TAKE ONE TABLET BY MOUTH TWICE A DAY FOR 3 DAYS; THEN INCRASE TO 2 TWO TIMES A DAY Discharge Instructions Additional Instructions: ED workup today is not concerning for cardiac cause of your chest pain. But please follow-up with your primary care provider for outpatient stress testing. Return to the emergency department with any concerns regarding additional chest pain.
[2023-11-09 09:03] LABS: Troponin I < 50 ng/L (< or =60)
== END 2023-11-09 09:31 | disposition home or self-care (01) ==
PROVIDERS: Student in an Organized Health Care Education/Training Program; Emergency Provider Emergency Medicine; PCP Family Medicine
DX: R07.89 Other chest pain (principal); D70.9 Neutropenia, unspecified; R00.1 Bradycardia, unspecified; E78.00 Pure hypercholesterolemia, unspecified
CPT/HCPCS: 00123; 80053; 93005; 93308; 99285; 71045; 83735; 84484; 85025; 85379; 93010; 99284

== ENCOUNTER 2024-09-07 01:29 | Outpatient (CLI) | payer BC, SELFPAY ==
--- NOTE | 2024-09-07 | DI.MAMMO_ITS ---
Exam(s) MAMMO SCREENING EXAM: MAMMO SCREENING CLINICAL HISTORY: SCREENING FOR BREAST CANCER, Z12.39. TECHNIQUE: Bilateral full field digital CC and MLO mammographic images were obtained with 3D tomosyn thesis and utilizing computer aided detection (CAD). COMPARISON: Prior mammograms were reviewed. FINDINGS: There has been no significant change in the appearance and distribution of the fibroglandular tissue. There are no new spiculated masses nor malignant appearing microcalcification groups. There is no significant architectural distortion nor skin thickening-retraction. IMPRESSION: No radiographic evidence of malignancy. BI-RADS Category 1 - Negative Breast Density - Category B - Scattered areas of fibroglandular density Breast density Category C or D implies that the patient has dense breast tissue. Dense breast tissue can make it harder to find cancer on a mammogram. Dense breast tissue is also associated with an incr eased risk of breast cancer. This information about the result of the mammogram report was provided to the patient to raise their awareness. Use this report when you speak with the patient about their risks for breast cancer, which includes their family history. At that time, you may recommend additional screening tests (Ultrasoun d or MRI) as these tests may add significant information. A negative radiographic report should not delay biopsy if a dominant or clinically suspicious mass is present. Up to ten percent of cancers are not identified on mammography. A negative report may reinforce clinical impression. Adenosis and dense breasts may obscure an underlying neoplasm. False positive reports average 6 to 10%. Patient will receive a letter notifying them of these results.
== END 2024-09-07 01:49 ==
PROVIDERS: PCP Family Medicine; Visit Provider Family Medicine
DX: Z12.31 Encounter for screening mammogram for malignant neoplasm of breast (principal); R92.323 Mammographic fibroglandular density, bilateral breasts
CPT/HCPCS: 77063; 77067